=== PATIENT | male | born 1965 | race Caucasian/White ===

== ENCOUNTER 2017-05-26 04:45 | Inpatient (IN) | payer MEDICAID ==
[2017-05-26] VITALS (30 sets, daily range): BP systolic 100–160; BP diastolic 49–81
[~2017-05-26] VITALS: Ht 172.7 cm; Wt 96.2 kg
[~2017-05-26 04:45] MED LIST: AMLO1CAP2 PO; ASPI-1169 PO; CILO100T PO; CLON0.2T PO; DILT120T2 PO; GLIM1TAB PO; HYDR1TAB4 PO; IBUP-1953 PO; INSU100C7 SQ; INSULIN; LIRA0.6P SQ; METO-357 PO; OMEP40CA PO; PIOG15TA8 PO
--- NOTE | 2017-05-26 04:46 | NUR ---
To bed 8 a 51 yo male from home bbra initially for SOB with CPAP by ems. However while enroute, patient rapidly declined in his mentation. As soon as patient is transferred to [facility], pulse and respiration were not appreciated. CPR initiated and acls protocol initiated under Dr Crane. Please see code sheet.
--- NOTE | 2017-05-26 04:48 | NUR ---
started a saline lock on the right hand g18.
--- NOTE | 2017-05-26 04:50 | NUR ---
patient was successfully intubated by Dr Crane with 7.5 ett and at 25cm on lip. Co2 indicator with color change noted, xr at bedside to confirm placement.
--- NOTE | 2017-05-26 04:55 | NUR ---
Pulse was appreciated at this time. Patient on ROSC. ongoing cardiac and vs monitoring.
[2017-05-26] MEDS ORDERED: PROPOFOL 100 ML ONE (04:57)
[2017-05-26] MEDS ORDERED: PROPOFOL 100 ML IV PRN (05:00)
[2017-05-26 05:16] LABS: BASOPHILS # (AUTO) 0.1 /CMM (0.0-0.2); BASOPHILS % (AUTO) 0.6 % (0.0-2.0); EOSINOPHILS # (AUTO) 0.5 /CMM (0.0-0.7); EOSINOPHILS % (AUTO) 1.9 % (0.0-6.0); HEMATOCRIT 48 % (39-51); HEMOGLOBIN 15.7 g/dL (13.5-17.5); LYMPHOCYTES # (AUTO) 10.9 /CMM (0.8-4.8); LYMPHOCYTES % (AUTO) 46.9 % (20.0-44.0); MEAN CORPUSCULAR HEMOGLOBIN 31 PG (26.0-33.0); MEAN CORPUSCULAR HGB CONC 33 g/dl (31.0-36.0); MEAN CORPUSCULAR VOLUME 93 fL (80-96); MONOCYTES # (AUTO) 1.3 /CMM (0.1-1.30); MONOCYTES % (AUTO) 5.5 % (2.0-12.0); NEUTROPHILS # (AUTO) 10.5 /CMM (1.8-8.9); NEUTROPHILS % (AUTO) 45.1 % (43.0-81.0); PLATELET COUNT (AUTO) 261 /CMM (150-450); RDW COEFFICIENT OF VARIATION 14.2 (11.5-15.0); RED BLOOD CELL COUNT(AUTO) 5.15 MIL/uL (4.5-6.0); WHITE BLOOD COUNT (AUTO) 23.3 K/uL (4.3-11.0)
[2017-05-26 05:27] LABS: INR 0.97 (0.87-1.13)
[2017-05-26] MEDS ORDERED: FUROSEMIDE 40 MG/4 ML VIAL IV ONE (05:30)
[2017-05-26 05:32] LABS: ALANINE AMINOTRANSFERASE 34 U/L (12-78); ALBUMIN 2.4 g/dL (3.4-5.0); ALKALINE PHOSPHATASE 141 U/L (46-116); ASPARTATE AMINOTRANSFERASE 27 U/L (15-37); BILIRUBIN,DIRECT 0.1 mg/dL (0.0-0.2); BILIRUBIN,TOTAL 0.3 mg/dL (0.2-1.0); CALCIUM, SERUM 8.9 mg/dL (8.5-10.1); CARBON DIOXIDE 19 mmol/L (21-32); CHLORIDE 101 mmol/L (98-107); CREATININE 1.6 mg/dL (0.6-1.3); POTASSIUM 3.8 mmol/L (3.5-5.1); SODIUM SERUM 139 mmol/L (136-145); TOTAL PROTEIN, SERUM 8.3 g/dL (6.4-8.2); UREA NITROGEN, BLOOD 19 mg/dL (7-18)
[2017-05-26 05:33] LABS: ACETAMINOPHEN 0 ug/ml (10-30); GLUCOSE 488 mg/dL (74-106)
[2017-05-26 05:34] LABS: ALCOHOL, BLOOD < 3 mg/dL (0-0); TROPONIN I 0.085 ng/mL (0.00-0.056)
[2017-05-26 05:35] LABS: EOSINOPHILS % (MANUAL) 1 % (0-4); LYMPHOCYTES % (MANUAL) 51 % (16-48); MONOCYTES % (MANUAL) 3 % (0-11.0); NEUTROPHILS % (MANUAL) 45 (42-76)
[2017-05-26 05:48] LABS: ABG BASE EXCESS -11.9 mmol/L; ABG OXYGEN SATURATION 98.7 % (92.0-98.5); ABG PCO2 56.5 mmHg (35.0-45.0); ABG PH 7.121 (7.350-7.450); ABG PO2 237.5 mmHg (75.0-100.0); COHb 2.7 % (0.5-1.5); MetHb 0.6 % (0.0-1.5); O2Hb 95.4 % (94.0-97.0); PEEP,BG 5 cm H2O; SITE, ABG Left Radial; VENT MODE, BG AC VENT; VT, ABG 500 mL
[2017-05-26] MEDS ORDERED: INSULIN REGULAR, HUMAN 100 UNIT/ML 10 ML VIAL ONE (05:48)
[2017-05-26] MEDS ORDERED: FUROSEMIDE 40 MG/4 ML VIAL ONE (05:48)
--- NOTE | 2017-05-26 05:52 | NUR ---
Placed OGT on patient, noted with gurgling sounds upon instilling air. noted with brownish secretions. taped at 65cm on lip. xr at bedside to confirm placement.
--- NOTE | 2017-05-26 05:58 | NUR ---
nunez cath inserted aseptically, drained about 50cc of clear yellow urine.
[2017-05-26] MEDS ORDERED: ETOMIDATE 2 MG/ML VIAL IV ONE ×2 (06:00→09:02)
[2017-05-26] MEDS ORDERED: INSULIN REGULAR, HUMAN 100 UNIT/ML 10 ML VIAL SQ ONE (06:00)
[2017-05-26] MEDS ORDERED: CEFTRIAXONE 1GM BAG (ER ONLY) 1 GM/50 ML PIGGYBACK IV ONE (06:00)
[2017-05-26] MEDS ORDERED: ASPIRIN 300 MG/SUPP.RECT RC ONE ×2 (06:00→06:02)
[2017-05-26] MEDS ORDERED: IV NS 0.9% 1,000 ML BAG IV ONE (06:00)
[2017-05-26] MEDS ORDERED: SUCCINYLCHOLINE CHLORIDE 20 MG/ML VIAL IV ONE ×2 (06:00→09:02)
[2017-05-26] MEDS ORDERED: MIDAZOLAM HCL 100 MG in IV NS 0.9% 80 ML IV PRN (06:00)
--- NOTE | 2017-05-26 06:02 | NUR ---
FINGER STICK ON PATIENT 432 BLOOD SUGAR MD GALINDO MADE AWARE
[2017-05-26] MEDS ORDERED: MIDAZOLAM 50 MG/10 ML VIAL ONE (06:10)
[2017-05-26] MEDS ORDERED: CEFTRIAXONE 1GM BAG (ER ONLY) 50 ML IV ONE (06:30)
[2017-05-26] MEDS ORDERED: IV NS 0.9% 1,000 ML IV PRN (06:33)
--- NOTE | 2017-05-26 06:40 | NUR ---
Transferred patient to icu bed via als protocol with rt at bedside. no incident noted. ongoing versed, propofol, rocephin infusing. RN at bedside.
--- NOTE | 2017-05-26 06:45 | NUR ---
BOX BLANK MACHINE OPERATOR HELPER: RECEIVED ORALLY INTUBATED PATIENT FOR DX OF ACUTE RESPIRATORY FAILURE AND S/P CARDIO PULMONARY ARREST. PLACED ON FULL MECH VENT WT SETTINGS ORDERED. NO ACUTE DISTRESS, NO EVIDENCE OF DISCOMFORT. UNABLE TO FOLLOW SIMPLE COMMANDS. RECEIVED WT RH IV RUNNING VERSED AT 7MG/HR AND PROPOFOL AT 20MCG/KG/MIN. NO S/S OF INFILTRATION. WT EPISODES OF TRYING TO GET UP ON BED AND PULLING TUBES. BILAT. SOFT WRIST RESTRAINTS ALSO IN PLACE TO PREVENT SELF EXTUBATION. PALPABLE PULSES AND SKIN WNL. SR ON PULMONOLOGIST. F/C PATENT DRAINING YELLOW URINE TO GRAVITY. WARM BED BATH RENDERED. HOB AT 45 DEGREES. WILL CONTINUE TO MONITOR. SAFETY PRECAUTION NOTED.
[2017-05-26] MEDS ORDERED: ZOLPIDEM TARTRATE 5 MG TABLET PO PRN (07:00)
[2017-05-26] MEDS ORDERED: MAG HYDROX/AL HYDROX/SIMETH 30 ML UDC PO PRN (07:00)
[2017-05-26] MEDS ORDERED: Z GUARD REMEDY 2 OZ OINT TP PRN (07:00)
[2017-05-26] MEDS ORDERED: ONDANSETRON HCL/PF 4 MG/2 ML VIAL IVP PRN (07:00)
[2017-05-26] MEDS ORDERED: MAGNESIUM HYDROXIDE 30 ML UDC PO PRN (07:00)
[2017-05-26] MEDS ORDERED: INSULIN REGULAR, HUMAN 100 UNIT in IV NS 0.9% 99 ML IV PRN ×2 (07:00)
--- NOTE | 2017-05-26 07:09 | NUR ---
[employer]- INITIAL NOTE RECEIVED PT INTUBATED & SEDATED. PT ORALLY INTUBATED ETT 7.5, 25 CM @ THE LIP. RESPIRATIONS EVEN & UNLABORED, NO SOB OR DISTRESS PRESENT. PT SEDATED ON DIPIRVAN AT 50 MCG/MIN (RECEIVED PT RUNNING AT 50 MCG/MIN)- OK PER DR. ORELLANA TO GO UP TO 100 MCG/MIN PER MIRROR POLISHER NURSE. BEDSIDE MONITOR REVEALS SINUS RHYTHM. HAMPTON CATHETER DRAINING TO GRAVITY CLEAR, YELLOW URINE. OGT PRESENT AND CLAMPED. ADVANCED AND VERIFIED PLACEMENT VIA AUSCULTATION. TWO IVS PRESENT: RIGHT HAND 18G HL AND LEFT HAND 18G HL. BOTH IVS FLUSHED, PATENT, INTACT AND FREE OF REDNESS, SWELLING AND INFLAMMATION. WILL CONTINUE TO MONITOR.
--- NOTE | 2017-05-26 07:10 | NUR ---
POST ARREST PT D/W DR DAVIS WHO ORDERED COOLING PROTOCOL. I ASKED NURSING OFFICE FOR 1 TO1 NURSING WHICH WAS SUPPLIED. WILL CALL FOR FEMORAL ACCESS CATHETER AND COOLING BLANKETS
[2017-05-26] MEDS ORDERED: LEVALBUTEROL HCL NEB 1.25 MG/0.5 ML VIAL.NEB IH SCH (07:35)
--- NOTE | 2017-05-26 07:40 | NUR ---
DR DAVIS AND ESTEBAN HERE AT BEDSIDE-PER MDS-COOLING MEASURES PLAN IS NOW CANCELLED
[2017-05-26 07:47] LABS: MAGNESIUM 2.7 mg/dL (1.8-2.4); PHOSPHORUS 7.8 mg/dL (2.5-4.9)
[2017-05-26] MEDS ORDERED: INSULIN REGULAR, HUMAN 100 UNIT/ML 3 ML VIAL SQ PRN (08:00)
[2017-05-26] MEDS ORDERED: ALBUTEROL FS 2.5 MG/3 ML VIAL.NEB NEB PRN (08:00)
[2017-05-26] MEDS ORDERED: DEXTROSE 50%-WATER 50 ML DISP.SYRIN IV PRN ×2 (08:00)
[2017-05-26] MEDS ORDERED: IPRATROPIUM NEB FS 0.5 MG/2.5 ML AMPUL.NEB NEB PRN (08:00)
[2017-05-26] MEDS: POTASSIUM CL. PREMIX PERIPHER. 50 ML IV SCH ×4 (08:01→11:18)
[2017-05-26] MEDS: PROPOFOL 100 ML IV PRN ×6 (08:01→22:16)
[2017-05-26] MEDS: LEVOFLOXACIN 750 MG /D5W 150ML 750 MG in PREMIX 1 EA IV SCH (08:01)
[2017-05-26] MEDS: FUROSEMIDE 40 MG/4 ML VIAL IV SCH ×3 (08:02→16:04)
[2017-05-26 08:07] LABS: THYROID STIMULATING HORMONE 13.07 uIU/mL (0.358-3.74)
[2017-05-26] MEDS: IPRATROPIUM NEB FS 0.5 MG/2.5 ML AMPUL.NEB NEB SCH ×4 (08:35→20:04)
[2017-05-26] MEDS: ASPIRIN 81 MG TAB.CHEW PO SCH (08:44)
[2017-05-26] MEDS: PANTOPRAZOLE 40 MG VIAL IV SCH (08:47)
[2017-05-26] MEDS: HEPARIN SODIUM, PORCINE 5000 UNITS/1 ML VIAL SQ SCH ×2 (08:49→20:34)
[2017-05-26] MEDS: INSULIN REGULAR, HUMAN 100 UNIT/ML 3 ML VIAL SQ PRN ×3 (08:50→17:08)
[2017-05-26] MEDS: BLOOD SUGAR DIAGNOSTIC 1 EACH STRIP IN SCH ×5 (08:50→20:32)
[2017-05-26 08:52] LABS: ABG BASE EXCESS -3.7 mmol/L; ABG OXYGEN SATURATION 98.1 % (92.0-98.5); ABG PCO2 49.5 mmHg (35.0-45.0); ABG PH 7.293 (7.350-7.450); ABG PO2 160.7 mmHg (75.0-100.0); AaDO2 502.8 mmHg; COHb 1.6 % (0.5-1.5); MetHb 0.6 % (0.0-1.5); O2Hb 95.9 % (94.0-97.0); PEEP,BG 5 cm H2O; SITE, ABG Right Radial; VT, ABG 500 mL
[2017-05-26] MEDS ORDERED: GLIMEPIRIDE 1 MG TABLET PO SCH (09:00)
[2017-05-26] MEDS: METOPROLOL TARTRATE 25 MG TABLET PO SCH ×2 (09:00→20:31)
[2017-05-26] MEDS: BENAZEPRIL HCL 20 MG TABLET PO SCH (09:00)
[2017-05-26] MEDS ORDERED: METOPROLOL SUCCINATE 50 MG TAB.SR.24H PO SCH (09:00)
[2017-05-26] MEDS ORDERED: PIOGLITAZONE HCL 15 MG TABLET PO SCH (09:00)
[2017-05-26] MEDS: AMLODIPINE BESYLATE 10 MG TABLET PO SCH (09:00)
[2017-05-26] MEDS ORDERED: ENOXAPARIN SODIUM 40 MG/0.4 ML DISP.SYRIN SQ SCH (09:00)
[2017-05-26] MEDS ORDERED: Medication Not On Formulary EA (Amlodipine Besylate/Benazepril (Lotrel 10-40 Mg Capsule) PO SCH (09:00)
[2017-05-26] MEDS: CILOSTAZOL 100 MG TABLET PO SCH ×2 (09:38→17:07)
--- NOTE | 2017-05-26 11:00 | NUR ---
OIL SEAL ASSEMBLER- SEDATION VACATION COMPLETED. AT 50 MCG/MIN OF DIPRIVAN, PT WOKE UP AND WAS ABLE TO FOLLOW COMMANDS. MILD AGITATION NOTED (TACHYPNEA). DIPRIVAN INCREASED TO 55 MCG/MIN. WILL CONTINUE TO MONITOR.
[2017-05-26 13:02] LABS: CALCIUM, SERUM 7.8 mg/dL (8.5-10.1); CREATININE 1.3 mg/dL (0.6-1.3); POTASSIUM 5.3 mmol/L (3.5-5.1)
[2017-05-26 13:06] LABS: APPEARANCE,URINE CLEAR (CLEAR); BILIRUBIN,URINE NEGATIVE (NEGATIVE); BLOOD, URINE 1+ Ery/uL (NEGATIVE); COLOR,URINE YELLOW (YELLOW); KETONES,URINE NEGATIVE (NEGATIVE); LEUKOCYTE ESTERASE ,URINE NEGATIVE (NEGATIVE); NITRITE, URINE NEGATIVE (NEGATIVE); PROTEIN,URINE 1+ mg/dl (NEGATIVE); UGLUCOSE NEGATIVE (NEGATIVE); UROBILINOGEN,URINE 0.2 EU/dL (0.2)
[2017-05-26 13:15] LABS: MAGNESIUM 2.1 mg/dL (1.8-2.4); PHOSPHORUS 4.2 mg/dL (2.5-4.9)
[2017-05-26 13:18] LABS: BACTERIA,URINE Rare /HPF (None Seen); RBC,URINE 0-2 /HPF (0-2); SQUAMOUS EPITHELIAL CELL,UR Few /HPF (None Seen)
[2017-05-26 13:23] LABS: EOSINOPHIL,URINE None Seen
[2017-05-26 13:39] LABS: URINE TOTAL PROTEIN 66.6 mg/dL (0-11.9)
--- NOTE | 2017-05-26 13:50 | NUR ---
SHIP MANAGER- DR. WELLS AT BEDSIDE. MD INFORMED OF TROPONIN LEVEL= 0.446. NO NEW ORDERS AT THIS TIME. WILL CONTINUE TO MONITOR.
[2017-05-26 18:30] LABS: POTASSIUM 4.1 mmol/L (3.5-5.1)
[2017-05-26 18:40] LABS: TROPONIN I 0.382 ng/mL (0.00-0.056)
--- NOTE | 2017-05-26 20:16 | NUR ---
received pt from day shift, s/p CPA, sedated on Diprivan at 60mcg, NSR, intubated, on the vent, lungs diminished/congested, no edema, OG clamped, f/c good output, restraints on, v/s stable, no pain, pt turned and repositioned, family at the bedside.
[2017-05-27] VITALS (38 sets, daily range): BP systolic 105–170; BP diastolic 48–87
[2017-05-27] MEDS: IPRATROPIUM NEB FS 0.5 MG/2.5 ML AMPUL.NEB NEB SCH ×7 (00:11→22:54)
--- NOTE | 2017-05-27 00:36 | NUR ---
pt is resting in the bed, v/s stable, no pain, pt turned and repositioned q2hrs.
[2017-05-27] MEDS: PROPOFOL 100 ML IV PRN ×3 (00:59→06:30)
[2017-05-27] MEDS: BLOOD SUGAR DIAGNOSTIC 1 EACH STRIP IN SCH ×6 (01:11→21:07)
--- NOTE | 2017-05-27 03:48 | NUR ---
RT NOTE PATIENT RECEIVED ON MECHANICAL VENTILATION, SETTINGS OF AC 20, 550, 60%, +5. ET TUBE SIZE 7.5 @ 25. ET TUBE SECURED AND PATENT AT ALL TIMES. VENT PLUGGED INTO RED OUTLET. AMBU BAG @ HOB. ALARMS ON AND AUDIBLE. SX DONE, SMALL THICK WHITE/YELLOW SECRETIONS NOTED. NO SOB NOTED. Addendum: 05/27/17 at 0349 by GINO SOLIZ RT Amended: Links added.
--- NOTE | 2017-05-27 04:37 | NUR ---
pt is resting in the bed, no acute distress overnight, SR, v/s stable, no pain, pt cleaned, changed and repositioned q2hrs.
[2017-05-27 04:46] LABS: BASOPHILS % (AUTO) 0.4 % (0.0-2.0); EOSINOPHILS # (AUTO) 0.1 /CMM (0.0-0.7); EOSINOPHILS % (AUTO) 1.8 % (0.0-6.0); HEMATOCRIT 39 % (39-51); HEMOGLOBIN 13.3 g/dL (13.5-17.5); LYMPHOCYTES # (AUTO) 1.6 /CMM (0.8-4.8); LYMPHOCYTES % (AUTO) 20.3 % (20.0-44.0); MEAN CORPUSCULAR HEMOGLOBIN 31 PG (26.0-33.0); MEAN CORPUSCULAR HGB CONC 34 g/dl (31.0-36.0); MEAN CORPUSCULAR VOLUME 91 fL (80-96); MONOCYTES # (AUTO) 0.6 /CMM (0.1-1.30); MONOCYTES % (AUTO) 7.4 % (2.0-12.0); NEUTROPHILS # (AUTO) 5.4 /CMM (1.8-8.9); NEUTROPHILS % (AUTO) 70.1 % (43.0-81.0); PLATELET COUNT (AUTO) 138 /CMM (150-450); RDW COEFFICIENT OF VARIATION 14.4 (11.5-15.0); RED BLOOD CELL COUNT(AUTO) 4.29 MIL/uL (4.5-6.0); WHITE BLOOD COUNT (AUTO) 7.7 K/uL (4.3-11.0)
[2017-05-27] MEDS: INSULIN REGULAR, HUMAN 100 UNIT/ML 3 ML VIAL SQ PRN ×5 (04:48→21:08)
[2017-05-27 05:07] LABS: TROPONIN I 0.286 ng/mL (0.00-0.056)
[2017-05-27 05:10] LABS: ALBUMIN 1.9 g/dL (3.4-5.0); BILIRUBIN,TOTAL 0.3 mg/dL (0.2-1.0); CREATININE 1.1 mg/dL (0.6-1.3); PHOSPHORUS 4.7 mg/dL (2.5-4.9); POTASSIUM 3.9 mmol/L (3.5-5.1); TOTAL PROTEIN, SERUM 6.6 g/dL (6.4-8.2)
[2017-05-27] MEDS: LEVOFLOXACIN 750 MG /D5W 150ML 750 MG in PREMIX 1 EA IV SCH (06:06)
--- NOTE | 2017-05-27 07:02 | NUR ---
GOODS LAYER- INITIAL NOTE RECEIVED PT INTUBATED & SEDATED. PT ORALLY INTUBATED ETT 7.5, 25 CM @ THE LIP. RESPIRATIONS EVEN & UNLABORED, NO SOB OR DISTRESS PRESENT. PT SEDATED ON DIPIRVAN AT 60 MCG/MIN. CAKE TESTER REVEALS SINUS RHYTHM. HAMPTON CATHETER DRAINING TO GRAVITY CLEAR, YELLOW URINE. OGT PRESENT AND CLAMPED. PLACEMENT VERIFIED VIA AUSCULTATION. THREE IVS PRESENT: 1) RIGHT HAND 18G HL, 2) LEFT HAND 18G HL AND 3) LEFT UPPER ARM MIDLINE. ALL IVS FLUSHED, PATENT, INTACT AND FREE OF REDNESS, SWELLING AND INFLAMMATION. PLAN FOR WEANING TRIAL TODAY. WILL CONTINUE TO MONITOR.
[2017-05-27] MEDS ORDERED: DC PROPOFOL WHEN EXTUBATED XX PRN (08:00)
--- NOTE | 2017-05-27 08:00 | NUR ---
SHAREPOINT CONSULTANT- Diprivan titrated per policy. Pt placed on SIMV mode by RT. 0815- Pt awake, alert & able to follow commands. No distress noted. 0845- Dr. Watts at bedside. aware of ABG results. Obtained orders to extubate pt. 0900- Pt extubated by RT and placed on 2L NC, saturating 93%. No respiratory distress noted. Will continue to monitor.
[2017-05-27] MEDS: CILOSTAZOL 100 MG TABLET PO SCH ×2 (08:24→16:22)
[2017-05-27] MEDS: METOPROLOL TARTRATE 25 MG TABLET PO SCH ×2 (08:24→20:11)
[2017-05-27] MEDS: PANTOPRAZOLE 40 MG VIAL IV SCH (08:24)
[2017-05-27] MEDS: AMLODIPINE BESYLATE 10 MG TABLET PO SCH (08:24)
[2017-05-27] MEDS: ASPIRIN 81 MG TAB.CHEW PO SCH (08:30)
[2017-05-27] MEDS: HEPARIN SODIUM, PORCINE 5000 UNITS/1 ML VIAL SQ SCH (08:30)
[2017-05-27 08:45] LABS: ABG BASE EXCESS 1.3 mmol/L; ABG OXYGEN SATURATION 98.3 % (92.0-98.5); ABG PCO2 40.4 mmHg (35.0-45.0); ABG PH 7.423 (7.350-7.450); ABG PO2 134.6 mmHg (75.0-100.0); AaDO2 176.5 mmHg; COHb 0.8 % (0.5-1.5); MetHb 0.5 % (0.0-1.5); PEEP,BG 5 cm H2O; SITE, ABG Left Radial
--- NOTE | 2017-05-27 09:10 | NUR ---
PT. 51 Y OLD MALE AWAKE AND RESPONSIVE. EXTUBATED PER DR. JACOBS POST ABG AND PLACED ON 2L/MIN N/C AND NO STRIDOR NOTED. PT. RADHA WELL AND CONTINUE FOR MONITORING AMBU BAG REMAIN AT THE BEDSIDE. Addendum: 05/27/17 at 1752 by JACEY VELÁZQUEZ RT Amended: Links added.
[2017-05-27] MEDS: FUROSEMIDE 40 MG/4 ML VIAL IV SCH ×2 (09:12→12:17)
[2017-05-27] MEDS: VALSARTAN 80 MG TABLET PO SCH (10:10)
[2017-05-27] MEDS: BENAZEPRIL HCL 20 MG TABLET PO SCH (10:10)
[2017-05-27] MEDS ORDERED: DEXTROSE 50%-WATER 50 ML DISP.SYRIN IV PRN (10:30)
[2017-05-27] MEDS ORDERED: EPINEPHRINE (1:10,000) SYRINGE 1 MG/10 ML DISP.SYRIN IVP ONE (11:32)
[2017-05-27] MEDS ORDERED: FEE EMEERGENCY 1 MIN EA MC ONE (11:32)
[2017-05-27] MEDS: ACETAMINOPHEN 325 MG TABLET PO PRN (16:22)
[2017-05-27] MEDS: GUAIFENESIN LA 600 MG TABLET.SA PO PRN (17:28)
[2017-05-27] MEDS ORDERED: GUAIFENESIN LA 600 MG TABLET.SA PO SCH (17:30)
--- NOTE | 2017-05-27 19:30 | NUR ---
LABOR RELATIONS OFFICER INITIAL NOTES RECEIVED PATIENT AWAKE, A/OX4, ABLE TO MAKE NEEDS KNOWN. S/P POST EXTUBATION. EDUCATED ON INCENTIVE SPIROMETER, PATIENT ABLE TO DEMONSTRATE BACK TEACHING. DENIES PAIN OR DISCOMFORT, STATES HE FEELS FINE. DENIES SOB. DENIES CHEST PAIN. RESPIRATIONS EVEN AND UNLABORED, ON ROOM AIR. ON TELE MONITOR SINUS TACH 112. SKIN WARM AND DRY TO TOUCH . F/C PATENT AND INTACT, DRAINING BY GRAVITY. HOB ELEVATED. SIDE RAILS UP AND LOCKED, BED KEPT AT LOWEST POSITION. CALL LIGHT KEPT WITHIN EASY REACH. WILL CONTINUE TO MONITOR.
--- NOTE | 2017-05-27 20:44 | NUR ---
PATIENT C/O FEELING NAUSEA, NO EMESIS NOTED, PRN ZOFRAN WAS GIVEN, WITH GOOD AFFECT. WILL CONTINUE TO MONITOR.
--- NOTE | 2017-05-27 21:02 | NUR ---
PATIENT REQUESTED FOR SLEEPING MEDICATION, MD MADE AWARE WITH NEW ORDERS FOR AMBIEN 5MG PO HS PRN. NOTED.
[2017-05-27] MEDS ORDERED: ZOLPIDEM TARTRATE 5 MG TABLET PO PRN (21:30)
--- NOTE | 2017-05-27 23:51 | NUR ---
PATIENT NOTED WITH ELEVATED BP 170/87. ASYMPTOMATIC. WILL CONTINUE TO MONITOR.
[2017-05-28] VITALS (17 sets, daily range): BP systolic 133–165; BP diastolic 63–82
[2017-05-28] MEDS: HYDROCODONE/APAP 5/325MG 1 EACH TABLET PO PRN (00:49)
[2017-05-28] MEDS: IPRATROPIUM NEB FS 0.5 MG/2.5 ML AMPUL.NEB NEB SCH ×6 (03:22→23:10)
[2017-05-28 04:31] LABS: BASOPHILS # (AUTO) 0.1 /CMM (0.0-0.2); BASOPHILS % (AUTO) 0.8 % (0.0-2.0); EOSINOPHILS # (AUTO) 0.3 /CMM (0.0-0.7); EOSINOPHILS % (AUTO) 2.4 % (0.0-6.0); HEMATOCRIT 42 % (39-51); HEMOGLOBIN 14.3 g/dL (13.5-17.5); LYMPHOCYTES # (AUTO) 2.3 /CMM (0.8-4.8); LYMPHOCYTES % (AUTO) 20.1 % (20.0-44.0); MEAN CORPUSCULAR HEMOGLOBIN 31 PG (26.0-33.0); MEAN CORPUSCULAR HGB CONC 34 g/dl (31.0-36.0); MEAN CORPUSCULAR VOLUME 90 fL (80-96); MONOCYTES # (AUTO) 0.9 /CMM (0.1-1.30); MONOCYTES % (AUTO) 7.4 % (2.0-12.0); NEUTROPHILS # (AUTO) 8.1 /CMM (1.8-8.9); NEUTROPHILS % (AUTO) 69.3 % (43.0-81.0); PLATELET COUNT (AUTO) 175 /CMM (150-450); RED BLOOD CELL COUNT(AUTO) 4.67 MIL/uL (4.5-6.0); WHITE BLOOD COUNT (AUTO) 11.6 K/uL (4.3-11.0)
[2017-05-28] MEDS: GUAIFENESIN LA 600 MG TABLET.SA PO PRN (04:50)
[2017-05-28 04:59] LABS: ALBUMIN 2.1 g/dL (3.4-5.0); BILIRUBIN,TOTAL 0.6 mg/dL (0.2-1.0); CALCIUM, SERUM 8.2 mg/dL (8.5-10.1); CREATININE 1.1 mg/dL (0.6-1.3); MAGNESIUM 1.8 mg/dL (1.8-2.4); PHOSPHORUS 3.5 mg/dL (2.5-4.9); TOTAL PROTEIN, SERUM 6.9 g/dL (6.4-8.2)
--- NOTE | 2017-05-28 07:30 | NUR ---
RN NOTES RECEIVED PATIENT RESTING IN BED, AWAKE, A/OX4, ABLE TO MAKE NEEDS KNOWN. S/P POST EXTUBATION YESTERDAY. ON O2@2LPM VIA NC, SATING WELL. NO SOB NOTED. HOB ELEVATED. VERBALIZED FEELING SORE ON CHEST AREA FROM CPR. SR ON WELDER REPAIR HR 90'S, SKIN WARM AND DRY TO TOUCH . F/C PATENT AND INTACT, DRAINING BY GRAVITY. SIDE RAILS UP AND LOCKED. CALL LIGHT KEPT WITHIN EASY REACH. WILL CONTINUE TO MONITOR.
--- NOTE | 2017-05-28 07:45 | NUR ---
CLERK OF WORKS CLOSING NOTES NO SIGNIFICANT CHANGES OVERNIGHT. ALL NEEDS ANTICIPATED AND MET. DENIES SOB, DENIES PAIN OR DISCOMFORT AT THIS TIME. ALL DUE MEDS GIVEN. PATIENT WITH EPISODE OF PAIN WHEN COUGHING. NO RESPIRATORY DISTRESS NOTED, ON 2LPMO2 VIA NC FOR COMFORT. F/C PATENT AND INTACT, DRAINING BY GRAVITY. PATIENT KEPT CLEAN AND DRY. TURNED AND REPOSITIONED TOLERATED. HOB ELEVATED. SIDE RAILS UP AND LOCKED. BED KEPT AT LOWEST POSITION. CALL LIGHT KEPT WITHIN EASY REACH. CONTINUITY OF CARE ENDORSED TO AM NURSE.
[2017-05-28 08:11] LABS: *SPE A/G RATIO 0.7 (0.7-1.7); *SPE ALBUMIN 2.5 g/dL (2.9-4.4); *SPE ALPHA-1-GLOBULIN 0.3 g/dL (0.0-0.4); *SPE ALPHA-2-GLOBULIN 1.3 g/dL (0.4-1.0); *SPE BETA GLOBULIN 1.2 g/dL (0.7-1.3); *SPE GLOBULIN, TOTAL 3.8 g/dL (2.2-3.9); *SPE M-SPIKE Not Observed g/dL (Not Observed); *SPEGAMMA GLOBULIN 1.1 g/dL (0.4-1.8)
[2017-05-28] MEDS: BLOOD SUGAR DIAGNOSTIC 1 EACH STRIP IN SCH ×4 (08:46→22:33)
[2017-05-28] MEDS: BENAZEPRIL HCL 20 MG TABLET PO SCH (08:47)
[2017-05-28] MEDS: PANTOPRAZOLE 40 MG VIAL IV SCH (08:47)
[2017-05-28] MEDS: CILOSTAZOL 100 MG TABLET PO SCH ×2 (08:47→17:39)
[2017-05-28] MEDS: ASPIRIN 81 MG TAB.CHEW PO SCH (08:48)
[2017-05-28] MEDS: VALSARTAN 80 MG TABLET PO SCH (08:48)
[2017-05-28] MEDS: LEVOFLOXACIN (750 MG) 750 MG TABLET PO SCH (08:48)
[2017-05-28] MEDS: AMLODIPINE BESYLATE 10 MG TABLET PO SCH (08:48)
[2017-05-28] MEDS: METOPROLOL TARTRATE 25 MG TABLET PO SCH ×4 (08:49→23:51)
[2017-05-28] MEDS: ENOXAPARIN SODIUM 40 MG/0.4 ML DISP.SYRIN SQ SCH (08:49)
[2017-05-28] MEDS: INSULIN REGULAR, HUMAN 100 UNIT/ML 3 ML VIAL SQ PRN ×4 (08:55→22:47)
[2017-05-28] MEDS: FUROSEMIDE 40 MG/4 ML VIAL IV SCH ×3 (09:46→17:40)
--- NOTE | 2017-05-28 11:08 | NUR ---
RN NOTES PT TRANSFERRED TO ROOM 108, REPORT GIVEN TO DAVINA MAS. AT BEDSIDE. NO ACUTE CHANGE IN CONDITION. VS STABLE.
--- NOTE | 2017-05-28 11:15 | NUR ---
Rn note; patient transferred from ICU without any distress . breathing even and unlabored , v/s stable at this time, SR in tele monitor. denied any pain, will continue to monitor .
[2017-05-28] MEDS: ACETAMINOPHEN 325 MG TABLET PO PRN (15:07)
--- NOTE | 2017-05-28 19:31 | NUR ---
RN EOS NOTE; PATIENT IS ABLE TO SIT IN THE EDGE OF THE BED AND DANGLE HIS FEET , NO DISTRESS NOTED. PRN TYLENOL PO GIVEN FOR MILD PAIN AROUND CHEST , TOLERATED WELL . REPORT GIVEN TO RN ILYA FOR CONTINUITY OF CARE.
--- NOTE | 2017-05-28 20:00 | NUR ---
MANAGER TRAINEE NOTES: RECEIVED PT IN AND IS ON ROOM AIR. PT AWAKE AND IS A/O4. FAMILY MEMBERS AT BEDSIDE. PT HAS HAMPTON CATH AND IS ATTACHED TO DRAINAGE BAG WITH YELLOW URINE DRAINING. PT HAS DAISY MIDLINE AND IS PATENT AND INTACT. PT ALSO HAS L HAND #18G AND IS PATENT AND INTACT. BOTH ARE S/L. CALL LIGHT WITHIN PT'S REACH. BED KEPT IN LOW, LOCKED POSITION, AND SIDE RAILS X 2UP. WILL CONTINUE TO MONITOR PT.
[2017-05-28] MEDS: INSULIN GLARGINE, 100 UNIT/ML CARTRIDGE SQ SCH (22:39)
--- NOTE | 2017-05-28 22:49 | NUR ---
MS RN NOTES: BLOOD SUGAR 288. HAD TO BORROW INSULIN SINCE NONE IN PATIENT'S CASETTE. CHARGE NURSE AWARE. 6 UNITS OF INSULIN WAS ADMINISTERED.
--- NOTE | 2017-05-28 23:00 | NUR ---
RN NOTES: GOT ORDER FROM ELAINE HARRYIEN 10MG PO PRN HS.
[2017-05-29] VITALS: BP 156/71
[2017-05-29] MEDS ORDERED: ZOLPIDEM TARTRATE 10 MG TABLET PO PRN
--- NOTE | 2017-05-29 | NUR ---
RN NOTES: PT REQUESTED FOR SLEEP MEDICATION. PT WAS ADMINISTERED AMBIEN 10MG PO.
[2017-05-29] MEDS: IPRATROPIUM NEB FS 0.5 MG/2.5 ML AMPUL.NEB NEB SCH ×6 (03:13→23:30)
[2017-05-29 04:00] VITALS: BP 150/72
[2017-05-29] MEDS: METOPROLOL TARTRATE 25 MG TABLET PO SCH ×3 (05:51→17:45)
[2017-05-29] MEDS: LEVOFLOXACIN (750 MG) 750 MG TABLET PO SCH (06:04)
[2017-05-29 06:35] LABS: CALCIUM, SERUM 8.5 mg/dL (8.5-10.1); CREATININE 1.1 mg/dL (0.6-1.3); POTASSIUM 3.8 mmol/L (3.5-5.1)
[2017-05-29 06:44] LABS: BASOPHILS % (AUTO) 0.2 % (0.0-2.0); EOSINOPHILS # (AUTO) 0.3 /CMM (0.0-0.7); EOSINOPHILS % (AUTO) 2.3 % (0.0-6.0); HEMATOCRIT 46 % (39-51); HEMOGLOBIN 15.9 g/dL (13.5-17.5); LYMPHOCYTES # (AUTO) 2.6 /CMM (0.8-4.8); LYMPHOCYTES % (AUTO) 19.2 % (20.0-44.0); MEAN CORPUSCULAR HEMOGLOBIN 31 PG (26.0-33.0); MEAN CORPUSCULAR HGB CONC 35 g/dl (31.0-36.0); MEAN CORPUSCULAR VOLUME 89 fL (80-96); MONOCYTES # (AUTO) 1.1 /CMM (0.1-1.30); MONOCYTES % (AUTO) 8.3 % (2.0-12.0); NEUTROPHILS # (AUTO) 9.4 /CMM (1.8-8.9); PLATELET COUNT (AUTO) 202 /CMM (150-450); RDW COEFFICIENT OF VARIATION 14.6 (11.5-15.0); RED BLOOD CELL COUNT(AUTO) 5.14 MIL/uL (4.5-6.0); WHITE BLOOD COUNT (AUTO) 13.4 K/uL (4.3-11.0)
--- NOTE | 2017-05-29 06:48 | NUR ---
GAS MAIN FITTER HELPER NOTES: ALL NEEDS WERE ATTENDED AND ANTICIPATED FOR. PT ON ROOM AIR AND TOLERATING WELL. PT ON TELE BOX AND READING SHOWS ST 104. PT HAS HAMPTON CATH AND IS ATTACHED TO DRAINAGE BAG. OUTPUT WAS 750ML. PT HAS DAISY MIDLINE AND IS PATENT AND INTACT. PT ALSO HAS L HAND 18G AND IS PATENT AND INTACT. CURRENTLY S/L. CALL LIGHT WITHIN PT'S REACH. BED KEPT IN LOW, LOCKED POSITION, AND SIDE RAILS X 2UP. WILL ENDORSE TO AM NURSE FOR MORENITA.
--- NOTE | 2017-05-29 07:26 | NUR ---
ENGINE SERVICE REPAIRER NOTES RECEIVED PT ON BED SLEEPING, ALERT ORIENTED X3. ON ROOM AIR SATURATING WELL. IV ACCESS ON DAISY MIDLINE SL. HEAD OF BED ELEVATED. SIDE RAILS UP. CALL LIGHT WITHIN REACH. WILL CONTINUE TO MONITOR PT CLOSELY.
[2017-05-29] MEDS: BLOOD SUGAR DIAGNOSTIC 1 EACH STRIP IN SCH ×4 (07:47→22:14)
[2017-05-29] MEDS: INSULIN REGULAR, HUMAN 100 UNIT/ML 3 ML VIAL SQ PRN ×4 (07:50→22:32)
[2017-05-29 08:00] VITALS: BP 164/76
[2017-05-29] MEDS: ASPIRIN 81 MG TAB.CHEW PO SCH (08:33)
[2017-05-29] MEDS: PANTOPRAZOLE 40 MG VIAL IV SCH (08:34)
[2017-05-29] MEDS: AMLODIPINE BESYLATE 10 MG TABLET PO SCH (08:34)
[2017-05-29] MEDS: BENAZEPRIL HCL 20 MG TABLET PO SCH (08:35)
[2017-05-29] MEDS: VALSARTAN 80 MG TABLET PO SCH (08:36)
[2017-05-29] MEDS: CILOSTAZOL 100 MG TABLET PO SCH ×2 (08:36→16:15)
[2017-05-29] MEDS: ENOXAPARIN SODIUM 40 MG/0.4 ML DISP.SYRIN SQ SCH (08:37)
[2017-05-29] MEDS: FUROSEMIDE 100 MG/10 ML VIAL IV SCH ×3 (10:41→17:46)
[2017-05-29 12:00] VITALS: BP 156/78
--- NOTE | 2017-05-29 14:42 | NUR ---
HERBOLOGIST NOTES PATIENT REFUSED OXYGEN. EXPLAINED THE RISK AND BENEFITS.
--- NOTE | 2017-05-29 15:18 | NUR ---
FOUND @ ROOM AIR SPO2 94% Addendum: 05/29/17 at 1518 by FLORENCIO NETTLES RT Amended: Links added.
[2017-05-29 16:00] VITALS: BP 128/78
[2017-05-29] MEDS: HYDROCODONE/APAP 5/325MG 1 EACH TABLET PO PRN ×2 (16:15→22:15)
--- NOTE | 2017-05-29 18:23 | NUR ---
CONTROL AND RECOVERY COMBAT RESCUE NOTES NO ACUTE CHANGES NOTED DURING THE SHIFT. DUE MEDS GIVEN. PROVIDED COMFORT AND SAFETY. WILL ENDORSE TO THE PM NURSE FOR MORENITA.
--- NOTE | 2017-05-29 19:25 | NUR ---
PIPE SMOKING MACHINE OFFBEARER OPENING NOTES RECEIVED REPORT FROM EMIGDIO MAS. PATIENT A/A/O X3, ABLE TO VERBALIZE NEEDS. BREATHING EVEN & UNLABORED, TOLERATING ROOM AIR. DENIES SOB OR DIFFICULTY BREATHING. ON TELE W/ SINUS TACH, HR 110-111. RIGHT AC IV #18, LEFT HAND IV #18 & LEFT UPPER ARM MIDLINE #18 INTACT & PATENT W/ DRESSING CDI, SALINE LOCKED. HAMPTON CATH DRAINING YELLOW URINE. DENIES ANY PAIN OR DISCOMFORT @ THIS TIME. CURRENTLY OOB IN CHAIR W/ FAMILY @ BEDSIDE. INSTRUCTED TO USE CALL LIGHT FOR ASSISTANCE. WILL CONTINUE TO MONITOR.
[2017-05-29 20:00] VITALS: BP 139/72
[2017-05-29] MEDS: INSULIN GLARGINE, 100 UNIT/ML CARTRIDGE SQ SCH (22:30)
[2017-05-30] VITALS: BP 115/61
[2017-05-30] MEDS: METOPROLOL TARTRATE 25 MG TABLET PO SCH ×4 (00:39→17:20)
[2017-05-30] MEDS: HYDROCODONE/APAP 5/325MG 1 EACH TABLET PO PRN (02:59)
[2017-05-30] MEDS: IPRATROPIUM NEB FS 0.5 MG/2.5 ML AMPUL.NEB NEB SCH ×4 (03:30→16:09)
[2017-05-30 04:00] VITALS: BP 141/71
[2017-05-30 06:31] LABS: BASOPHILS % (AUTO) 0.3 % (0.0-2.0); EOSINOPHILS # (AUTO) 0.4 /CMM (0.0-0.7); EOSINOPHILS % (AUTO) 3.4 % (0.0-6.0); HEMATOCRIT 44 % (39-51); HEMOGLOBIN 15.3 g/dL (13.5-17.5); LYMPHOCYTES # (AUTO) 2.4 /CMM (0.8-4.8); LYMPHOCYTES % (AUTO) 20.5 % (20.0-44.0); MEAN CORPUSCULAR HEMOGLOBIN 31 PG (26.0-33.0); MEAN CORPUSCULAR HGB CONC 35 g/dl (31.0-36.0); MEAN CORPUSCULAR VOLUME 89 fL (80-96); MONOCYTES # (AUTO) 1.2 /CMM (0.1-1.30); MONOCYTES % (AUTO) 9.7 % (2.0-12.0); NEUTROPHILS # (AUTO) 7.8 /CMM (1.8-8.9); NEUTROPHILS % (AUTO) 66.1 % (43.0-81.0); PLATELET COUNT (AUTO) 199 /CMM (150-450); RDW COEFFICIENT OF VARIATION 14.6 (11.5-15.0); WHITE BLOOD COUNT (AUTO) 11.9 K/uL (4.3-11.0)
[2017-05-30 06:37] LABS: ALBUMIN 2.3 g/dL (3.4-5.0); BILIRUBIN,TOTAL 0.6 mg/dL (0.2-1.0); CALCIUM, SERUM 8.8 mg/dL (8.5-10.1); CREATININE 1.4 mg/dL (0.6-1.3); MAGNESIUM 1.9 mg/dL (1.8-2.4); PHOSPHORUS 4.6 mg/dL (2.5-4.9); POTASSIUM 3.5 mmol/L (3.5-5.1); TOTAL PROTEIN, SERUM 7.5 g/dL (6.4-8.2)
[2017-05-30] MEDS: LEVOFLOXACIN (750 MG) 750 MG TABLET PO SCH (07:00)
--- NOTE | 2017-05-30 07:19 | NUR ---
CONSULTING SERVICES PROJECT MANAGER NOTES RECEIVED PT ON BED SLEEPING. NPO. ON TELE MONITOR SINUS TACHY. ON NASAL CANNULA SATURATING WELL. IV ACCESS ON DAISY MIDLINE AND RAC #18 HL. HEAD OF BED ELEVATED. SIDE RAILS UP. CALL LIGHT WITHIN REACH. WILL CONTINUE TO MONITOR PT CLOSELY.
[2017-05-30] MEDS: BLOOD SUGAR DIAGNOSTIC 1 EACH STRIP IN SCH ×3 (07:34→17:22)
[2017-05-30 08:00] VITALS: BP 142/58
[2017-05-30] MEDS: BENAZEPRIL HCL 20 MG TABLET PO SCH (09:00)
[2017-05-30] MEDS: CILOSTAZOL 100 MG TABLET PO SCH ×2 (09:00→17:19)
[2017-05-30] MEDS: ASPIRIN 81 MG TAB.CHEW PO SCH (09:00)
[2017-05-30] MEDS: ENOXAPARIN SODIUM 40 MG/0.4 ML DISP.SYRIN SQ SCH (09:00)
[2017-05-30] MEDS ORDERED: VALSARTAN 80 MG TABLET PO SCH (09:00)
[2017-05-30] MEDS: AMLODIPINE BESYLATE 10 MG TABLET PO SCH (09:00)
[2017-05-30] MEDS: PANTOPRAZOLE 40 MG VIAL IV SCH (09:59)
--- NOTE | 2017-05-30 11:03 | NUR ---
CASHIER ASSISTANT NOTES BLOOD SUGAR 216MG/DL. NO INSULIN PATIENT IS NPO.
[2017-05-30] MEDS ORDERED: IOHEXOL-350 100 ML VIAL IV ONE (11:57)
[2017-05-30] MEDS ORDERED: CT SWABBABLE VALVE TRANS SET 1 EA INFUS.SET MC ONE (11:57)
[2017-05-30] MEDS ORDERED: IV NS 0.9% 250 ML IV ONE (11:57)
[2017-05-30] MEDS ORDERED: METOPROLOL TARTRATE INJ 5 MG/5 ML AMPUL ONE ×3 (13:47→14:21)
--- NOTE | 2017-05-30 15:50 | NUR ---
MS RN NOTES HAMPTON CATHETER REMOVED. PATIENT ABLE TO VOID AND MOVE ON HIS OWN.
[2017-05-30 16:00] VITALS: BP 137/67
[2017-05-30] MEDS ORDERED: METO25TA20 PO (17:07)
[2017-05-30] MEDS ORDERED: AMLO10TA2 PO (17:07)
[2017-05-30] MEDS ORDERED: VALS80TA2 PO (17:07)
[2017-05-30 17:20] VITALS: BP 137/67
[2017-05-30] MEDS: INSULIN REGULAR, HUMAN 100 UNIT/ML 3 ML VIAL SQ PRN (17:21)
--- NOTE | 2017-05-30 18:42 | NUR ---
MS RN NOTES PT DISCHARGED STABLE. EXITE CARE AND PRESCRIPTION DONE. ACCOMPANIED BY AND RN OUTSIDE THE HOSPITAL. PT STABLE BEFORE DISCHARGE.
== END 2017-05-30 18:40 | disposition home or self-care (01) | DRG 720 ==
LOC: ER 04:46 → ICU 06:08 → TELE1 05-28 10:52 → MEDSG1 05-30 12:18
PROVIDERS: ADMIT Internal Medicine; ATTEND Internal Medicine
PROC: 5A12012 Performance of Cardiac Output, Single, Manual (ICD-10-PCS; principal; 2017-05-26)
PROC: 5A1945Z Respiratory Ventilation, 24-96 Consecutive Hours (ICD-10-PCS; 2017-05-26)
PROC: 0BH17EZ Insertion of Endotracheal Airway into Trachea, Via Natural or Artificial Opening (ICD-10-PCS; 2017-05-26)
PROC: B547ZZA Ultrasonography of Left Subclavian Vein, Guidance (ICD-10-PCS; 2017-05-26)
PROC: 05H633Z Insertion of Infusion Device into Left Subclavian Vein, Percutaneous Approach (ICD-10-PCS; 2017-05-26)
DX: A41.9 Sepsis, unspecified organism (principal); I46.9 Cardiac arrest, cause unspecified; I21.A1 Myocardial infarction type 2; I50.33 Acute on chronic diastolic (congestive) heart failure; J96.01 Acute respiratory failure with hypoxia; N17.0 Acute kidney failure with tubular necrosis; J96.02 Acute respiratory failure with hypercapnia; J18.9 Pneumonia, unspecified organism; I11.0 Hypertensive heart disease with heart failure; J44.0 Chronic obstructive pulmonary disease with (acute) lower respiratory infection; R65.20 Severe sepsis without septic shock; J44.1 Chronic obstructive pulmonary disease with (acute) exacerbation; Z79.84 Long term (current) use of oral hypoglycemic drugs; Z79.899 Other long term (current) drug therapy; Z79.82 Long term (current) use of aspirin; G89.29 Other chronic pain; G47.33 Obstructive sleep apnea (adult) (pediatric); E44.0 Moderate protein-calorie malnutrition; E78.5 Hyperlipidemia, unspecified; E66.9 Obesity, unspecified; E11.65 Type 2 diabetes mellitus with hyperglycemia; E11.22 Type 2 diabetes mellitus with diabetic chronic kidney disease; I13.0 Hypertensive heart and chronic kidney disease with heart failure and stage 1 through stage 4 chronic kidney disease, or unspecified chronic kidney disease; N18.1 Chronic kidney disease, stage 1; F17.200 Nicotine dependence, unspecified, uncomplicated; Z68.35 Body mass index [BMI] 35.0-35.9, adult; N13.9 Obstructive and reflux uropathy, unspecified; I35.1 Nonrheumatic aortic (valve) insufficiency; I70.0 Atherosclerosis of aorta; N40.0 Benign prostatic hyperplasia without lower urinary tract symptoms; Z87.442 Personal history of urinary calculi; E87.2 Acidosis
CPT/HCPCS: 31720; 36415; 36569; 36600; 71045-TC; 75574; 76770-TC; 80048-TC; 80053-TC; 80061-TC; 80076-TC; 81000-TC; 82550-TC; 82553-TC; 82570-TC; 82803-TC; 82962-TC; 83605-TC; 83735-TC; 83880; 83970; 84100-TC; 84132-TC; 84155; 84155-TC; 84165; 84300-TC; 84439-TC; 84443-TC; 84484-TC; 85025-TC; 85730-TC; 87040-TC; 87070-TC; 87081-TC; 87086-TC; 93307-TC; 94002-TC; 94640-TC; 94799-TC; 99082-TC; A4216; A4606; C9113; G0480; J0171; J0330; J0696; J1644; J1650; J1815; J1940; J1956; J2250; J2405; J3480; J3490; J7030; J7050; Q9967

== ENCOUNTER 2017-06-03 09:53 | Emergency (ER) | payer MEDICAID ==
[~2017-06-03] VITALS: Ht 177.8 cm; Wt 104.9 kg
[~2017-06-03 09:53] MED LIST changes: +AMLO10TA6 PO; -AMLO1CAP2 PO; +METO25TA20 PO; +VALS80TA2 PO
--- NOTE | 2017-06-03 09:55 | NUR ---
AAOX3, [id number] FROM HOME FOR SOB,ARRIVED ON CPAP, HYPERTENSIVE IN THE FIELD 227/94 2 ROUNDS OF NITRO 1.2 GIVEN BY EMS. RESP IS LABORED. PLACED ON THE MONITOR. DR MALIN AT FOR EVAL.
[2017-06-03] MEDS ORDERED: ALBUTEROL FS 2.5 MG/3 ML VIAL.NEB CONTNEB ONE (10:00)
[2017-06-03] MEDS ORDERED: NITROGLYCERIN 0.4 MG/TAB BOTTLE SL ONE (10:00)
[2017-06-03] MEDS ORDERED: ALBUTEROL FS 2.5 MG/3 ML VIAL.NEB ONE (10:04)
[2017-06-03 10:09] LABS: BASOPHILS % (AUTO) 0.3 % (0.0-2.0); EOSINOPHILS % (AUTO) 2.7 % (0.0-6.0); HEMATOCRIT 44 % (39-51); HEMOGLOBIN 14.7 g/dL (13.5-17.5); LYMPHOCYTES # (AUTO) 1.6 /CMM (0.8-4.8); LYMPHOCYTES % (AUTO) 28.7 % (20.0-44.0); MEAN CORPUSCULAR HGB CONC 34 g/dl (31.0-36.0); MEAN CORPUSCULAR VOLUME 88 fL (80-96); MONOCYTES # (AUTO) 0.3 /CMM (0.1-1.30); MONOCYTES % (AUTO) 5.6 % (2.0-12.0); NEUTROPHILS # (AUTO) 3.5 /CMM (1.8-8.9); NEUTROPHILS % (AUTO) 62.7 % (43.0-81.0); PLATELET COUNT (AUTO) 133 /CMM (150-450); RDW COEFFICIENT OF VARIATION 13.2 (11.5-15.0); RED BLOOD CELL COUNT(AUTO) 4.95 MIL/uL (4.5-6.0); WHITE BLOOD COUNT (AUTO) 5.6 K/uL (4.3-11.0)
[2017-06-03 10:19] LABS: CALCIUM, SERUM 9.1 mg/dL (8.5-10.1); CARBON DIOXIDE 27 mmol/L (21-32); CHLORIDE 103 mmol/L (98-107); CREATININE 0.9 mg/dL (0.6-1.3); GLUCOSE 275 mg/dL (74-106); POTASSIUM 4.4 mmol/L (3.5-5.1); SODIUM SERUM 137 mmol/L (136-145); UREA NITROGEN, BLOOD 22 mg/dL (7-18)
[2017-06-03] MEDS ORDERED: NITROGLYCERIN PACKET 1 GM PACKET ONE (10:22)
[2017-06-03 10:24] LABS: INR 0.95 (0.85-1.15)
[2017-06-03 10:28] LABS: TROPONIN I < 0.017 ng/mL (0.00-0.056)
--- NOTE | 2017-06-03 10:35 | NUR ---
Patient is resting comfortably in bed with eyes closed. Easily aroused. VSS
[2017-06-03] MEDS ORDERED: NITROGLYCERIN 0.4 MG/TAB BOTTLE ONE (10:38)
[2017-06-03] MEDS ORDERED: FUROSEMIDE 40 MG/4 ML VIAL ONE (10:47)
[2017-06-03] MEDS ORDERED: FUROSEMIDE 20 MG/2 ML VIAL IV ONE (11:00)
--- NOTE | 2017-06-03 12:08 | NUR ---
IV removed. Catheter intact and site benign. Pressure and 4x4 applied to site. No bleeding noted.Patient discharged to home in stable condition. Written and verbal after care instructions given. Patient verbalizes understanding of instruction.
[2017-06-03 12:14] VITALS: BP 148/73
== END 2017-06-03 12:16 | disposition home or self-care (01) ==
LOC: ER 09:53
DX: J98.01 Acute bronchospasm (principal); R06.02 Shortness of breath; I10 Essential (primary) hypertension; E11.9 Type 2 diabetes mellitus without complications; I11.0 Hypertensive heart disease with heart failure; I50.9 Heart failure, unspecified; F17.200 Nicotine dependence, unspecified, uncomplicated; R09.2 Respiratory arrest; Z79.4 Long term (current) use of insulin; Z79.82 Long term (current) use of aspirin; Z86.74 Personal history of sudden cardiac arrest
CPT/HCPCS: 36415; 71045-TC; 80048-TC; 83880; 84484-TC; 85025-TC; 85730-TC; A4606; J1940; Z7610

== ENCOUNTER 2017-07-02 22:16 | Inpatient (IN) | payer MEDICAID ==
[~2017-07-02] VITALS: Ht 175.3 cm; Wt 98.9 kg
--- NOTE | 2017-07-02 22:25 | NUR ---
PT BBRA FROM HOME C/O SOB X 1 HOUR TONGUE AND QUARTER STITCHER S/P DRINKING WITH FRIENDS AND GETING AGITATED. PT IS AAOX4. SKIN DRY AND WARM TO TOUCH. PT SPO2 97% ON RA. BREATH SOUNDS AUSCULTATED BILATERALLY. RESP EVEN AND UNLABORED. NO S/S OF DISTRESS NOTED AT THIS TIME. PT DENIES HAVING ANY PAIN. -N/V/D. -COUGH. -DYSPNEA. PT STATES "I DIDNT WANT TO COME BUT MY FAMILY CALLED THE PARAMEDICS". PT NOTED TO BE TACHYCARDIC AT 120BPM. MILD SWELLING NOTED OF THE LEFT LOWER EXTREMITY. PT SAFETY AND COMOFRT MEASURES IN PLACE. PT PLACED ON MONITOR AND POX. MD BEDSIDE FOR EVAL.
[2017-07-02] MEDS ORDERED: IV NS 0.9% 1,000 ML BAG IV ONE (22:30)
--- NOTE | 2017-07-02 22:34 | NUR ---
EMT BEDSIDE FOR EKG
--- NOTE | 2017-07-02 22:35 | NUR ---
BLOOD SPECIMEN PICKED UP BY PREP COOK CAR
[2017-07-02 22:47] LABS: BASOPHILS % (AUTO) 0.6 % (0.0-2.0); EOSINOPHILS % (AUTO) 3.5 % (0.0-6.0); HEMATOCRIT 41 % (39-51); LYMPHOCYTES % (AUTO) 33.3 % (20.0-44.0); MEAN CORPUSCULAR HGB CONC 34 g/dl (31.0-36.0); MEAN CORPUSCULAR VOLUME 88 fL (80-96); MONOCYTES # (AUTO) 0.4 /CMM (0.1-1.30); MONOCYTES % (AUTO) 6.5 % (2.0-12.0); NEUTROPHILS # (AUTO) 3.3 /CMM (1.8-8.9); NEUTROPHILS % (AUTO) 56.1 % (43.0-81.0); PLATELET COUNT (AUTO) 136 /CMM (150-450); RED BLOOD CELL COUNT(AUTO) 4.67 MIL/uL (4.5-6.0); WHITE BLOOD COUNT (AUTO) 5.9 K/uL (4.3-11.0)
[2017-07-02 23:00] LABS: CALCIUM, SERUM 8.8 mg/dL (8.5-10.1); CARBON DIOXIDE 24 mmol/L (21-32); CHLORIDE 99 mmol/L (98-107); CREATININE 1.2 mg/dL (0.6-1.3); POTASSIUM 4.3 mmol/L (3.5-5.1); SODIUM SERUM 137 mmol/L (136-145); UREA NITROGEN, BLOOD 28 mg/dL (7-18)
[2017-07-02 23:02] LABS: GLUCOSE 395 mg/dL (74-106)
[2017-07-02 23:05] LABS: D-DIMER 1.56 mg/L(FEU (0.17-0.50); INR 0.95 (0.87-1.13); TROPONIN I < 0.017 ng/mL (0.00-0.056)
[2017-07-02] MEDS ORDERED: INSULIN REGULAR, HUMAN 100 UNIT/ML 10 ML VIAL ONE (23:18)
--- NOTE | 2017-07-02 23:20 | NUR ---
regular insulin 10 units iv verified with Cristopher MAS
[2017-07-02] MEDS ORDERED: INSULIN REGULAR, HUMAN 100 UNIT/ML 10 ML VIAL IV ONE (23:30)
[2017-07-02] MEDS ORDERED: IV NS 0.9% 250 ML IV ONE (23:38)
[2017-07-02] MEDS ORDERED: CT SWABBABLE VALVE TRANS SET 1 EA INFUS.SET MC ONE (23:38)
[2017-07-02] MEDS ORDERED: IOHEXOL-350 100 ML VIAL IV ONE (23:38)
--- NOTE | 2017-07-02 23:38 | NUR ---
GRISTMILLER BEDSIDE SPEAKING WITH PT REGARDING CTA.
--- NOTE | 2017-07-02 23:40 | NUR ---
PT TO CT
[2017-07-03] MEDS ORDERED: ASPIRIN 325 MG TABLET PO ONE
[2017-07-03] MEDS ORDERED: ASPIRIN 325 MG TABLET ONE (00:20)
--- NOTE | 2017-07-03 01:32 | NUR ---
REPORT GIVEN TO CARLOS CRANDALL FOR MORENITA.
[2017-07-03] MEDS ORDERED: DEXTROSE 50%-WATER 50 ML DISP.SYRIN IV PRN (02:00)
[2017-07-03] MEDS ORDERED: NITROGLYCERIN 0.4 MG/TAB BOTTLE SL PRN (02:00)
[2017-07-03] MEDS ORDERED: ACETAMINOPHEN 325 MG TABLET PO PRN (02:00)
[2017-07-03] MEDS ORDERED: ONDANSETRON HCL/PF 4 MG/2 ML VIAL IVP PRN (02:00)
[2017-07-03] MEDS ORDERED: CLONIDINE HCL 0.2 MG TABLET PO PRN (02:00)
[2017-07-03 02:03] LABS: ALBUMIN 2.7 g/dL (3.4-5.0); BILIRUBIN,DIRECT 0.1 mg/dL (0.0-0.2); BILIRUBIN,TOTAL 0.3 mg/dL (0.2-1.0); TOTAL PROTEIN, SERUM 7.8 g/dL (6.4-8.2)
[2017-07-03 02:15] VITALS: BP 172/77
[2017-07-03] MEDS: HYDROCODONE/APAP 5/325MG 1 EACH TABLET PO PRN (02:50)
--- NOTE | 2017-07-03 03:00 | NUR ---
POSTAL WORKER NOTE: RECEIVE PATIENT FROM ER, NO ACUTE DISTRESS NOTED. BREATHING EVEN AND UNLABORED, NO SOB NOTED. IV TO RAC IN PLACE. PATIENT COMPLAINS OF BACK PAIN /, NORCO 5/325MG 1 TAB ORAL GIVEN PER MD ORDER. ORIENTED PATIENT TO ROOM AND USE OF CALL LIGHT. BED LOCKED AND IN LOWEST POSITION, CALL LIGHT IN REACH WILL CONTINUE TO MONITOR.
[2017-07-03 04:00] VITALS: BP 168/98
[2017-07-03] MEDS ORDERED: CLONIDINE HCL 0.1 MG TABLET PO PRN (04:13)
--- NOTE | 2017-07-03 04:30 | NUR ---
DIESEL PLANT OPERATOR NOTE: PATIENT BLOOD PRESSURE 172/77, HR 112. CLONIDINE 0.2 MG ORAL GIVEN PER MD ORDER. WILL CONTINUE TO MONITOR.
--- NOTE | 2017-07-03 06:25 | NUR ---
MS RN NOTE: PATIENT RESTING IN BED, NO ACUTE DISTRESS NOTED. BREATHING EVEN AND UNLABORED, NO SOB NOTED. IV TO RAC IN PLACE. TELE READING SINUS TACHY 100-120'S. PATIENT BLOOD SUGAR LEVEL 169MG/DL, NO S/S OF HYPER/HYPOGLYCEMIA NOTED. BED LOCKED AND IN LOWEST POSITION, CALL LIGHT IN REACH. WILL ENDORSE TO DAY NURSE TO CONTINUE WITH PLAN OF CARE.
[2017-07-03] MEDS: BLOOD SUGAR DIAGNOSTIC 1 EACH STRIP IN SCH ×4 (06:34→21:04)
[2017-07-03] MEDS: INSULIN REGULAR, HUMAN 100 UNIT/ML 3 ML VIAL SQ PRN ×4 (06:35→21:02)
[2017-07-03 07:18] LABS: BASOPHILS % (AUTO) 0.5 % (0.0-2.0); HEMATOCRIT 39 % (39-51); HEMOGLOBIN 13.3 g/dL (13.5-17.5); LYMPHOCYTES # (AUTO) 2.2 /CMM (0.8-4.8); LYMPHOCYTES % (AUTO) 30.9 % (20.0-44.0); MEAN CORPUSCULAR HGB CONC 34 g/dl (31.0-36.0); MEAN CORPUSCULAR VOLUME 88 fL (80-96); MONOCYTES # (AUTO) 0.6 /CMM (0.1-1.30); MONOCYTES % (AUTO) 8.9 % (2.0-12.0); NEUTROPHILS % (AUTO) 55.7 % (43.0-81.0); PLATELET COUNT (AUTO) 134 /CMM (150-450); RDW COEFFICIENT OF VARIATION 14.1 (11.5-15.0); RED BLOOD CELL COUNT(AUTO) 4.39 MIL/uL (4.5-6.0); WHITE BLOOD COUNT (AUTO) 7.1 K/uL (4.3-11.0)
[2017-07-03 07:28] LABS: ALBUMIN 2.5 g/dL (3.4-5.0); BILIRUBIN,TOTAL 0.6 mg/dL (0.2-1.0); CALCIUM, SERUM 8.3 mg/dL (8.5-10.1); MAGNESIUM 1.9 mg/dL (1.8-2.4); PHOSPHORUS 3.9 mg/dL (2.5-4.9); POTASSIUM 4.6 mmol/L (3.5-5.1); TOTAL PROTEIN, SERUM 7.2 g/dL (6.4-8.2)
--- NOTE | 2017-07-03 07:39 | NUR ---
MS RN OPENING NOTES RECEIVED PATIENT IN STABLE CONDITION. IN NO APPARENT DISTRESS. BEDSIDE RAILS ARE UPX2. BED IS LOCKED AND LOWERED. CALL LIGHT IS WITHIN REACH. IV LINE IS INTACT AND PATENT. WILL CONTINUE TO MONITOR.
[2017-07-03 08:00] VITALS: BP 159/81
[2017-07-03] MEDS: CILOSTAZOL 100 MG TABLET PO SCH ×2 (08:14→16:43)
[2017-07-03] MEDS: PANTOPRAZOLE 40 MG TABLET.DR PO SCH (08:14)
[2017-07-03] MEDS: ASPIRIN 81 MG TAB.CHEW PO SCH (08:14)
[2017-07-03] MEDS: INSULIN GLARGINE, 100 UNIT/ML CARTRIDGE SQ SCH ×2 (08:26→21:03)
--- NOTE | 2017-07-03 08:28 | NUR ---
PATIENT REFUSED 75 UNITS OF LANTUS INSULIN. PATIENT PREFERRED TO ONLY TAKE 50. BLOOD SUGAR WAS 184. EXPLAINED TO THE PATIENT THE TREATMENT PLAN. WILL INFORM DOCTOR IF NECESSARY TO ADJUST MEDICATION.
[2017-07-03] MEDS ORDERED: METOPROLOL SUCCINATE 50 MG TAB.SR.24H PO SCH (09:00)
[2017-07-03] MEDS ORDERED: AMLODIPINE BESYLATE 10 MG TABLET PO SCH (09:00)
[2017-07-03] MEDS ORDERED: VALSARTAN 80 MG TABLET PO SCH (09:00)
[2017-07-03] MEDS ORDERED: DILTIAZEM HCL CD 180 MG PO SCH (09:30)
--- NOTE | 2017-07-03 11:43 | NUR ---
BLOOD SUGAR WAS 189. 3 UNITS OF REGULAR INSULIN GIVEN.
[2017-07-03 12:00] VITALS: BP 145/76
[2017-07-03 16:00] VITALS: BP 144/71
[2017-07-03] MEDS ORDERED: hydrALAZINE HCL 25 MG TABLET PO PRN (18:00)
--- NOTE | 2017-07-03 18:26 | NUR ---
NOTIFIED PHARMACY TO VERIFY 1800 MEDICATIONS. PHARMACY WILL VERIFY.
[2017-07-03] MEDS: FUROSEMIDE 40 MG/4 ML VIAL IV SCH (18:42)
[2017-07-03] MEDS: VALSARTAN 80 MG TABLET PO SCH (18:44)
--- NOTE | 2017-07-03 18:52 | NUR ---
MS RN CLOSING NOTES PATIENT IS STABLE. IN NO APPARENT DISTRESS. BEDSIDE RAILS ARE UPX2. BED IS LOCKED AND LOWERED. CALL LIGHT IS WITHIN REACH. ALL NEEDS WERE MET. IV IS INTACT AND PATENT. WILL ENDORSE CARE TO GENERAL FARM HAND NURSE FOR MORENITA.
--- NOTE | 2017-07-03 19:50 | NUR ---
SHANK SKINNER OPENING NOTES RECEIVED PATIENT AWAKE, ALERT AND VERBALLY RESPONSIVE, RESPIRATIONS EVEN AND UNLABORED , DENIES ANY PAIN OR DISCOMFORT, DENIES CHEST PAIN, ON RAILWAY SIGNAL OPERATOR SR 87. IV SITE TO RIGHT AC 18 GAUGE INTACT AND PATENT, PATIENT AMBULATORY WITH BRP, STEADY GAIT, ORIENTED TO STAFF, SAFETY MEASURES IN PLACE CALL LIGHT KEPT WITHIN REACH, WILL CONTINUE TO MONITOR
[2017-07-03 20:00] VITALS: BP 144/72
[2017-07-03] MEDS: CARVEDILOL 6.25 MG TABLET PO SCH (20:42)
[2017-07-03] MEDS ORDERED: ATORVASTATIN 40 MG TABLET PO SCH (22:00)
[2017-07-04] MEDS: HYDROCODONE/APAP 5/325MG 1 EACH TABLET PO PRN (00:31)
[2017-07-04 04:00] VITALS: BP 140/70
[2017-07-04] MEDS: BLOOD SUGAR DIAGNOSTIC 1 EACH STRIP IN SCH ×2 (06:24→11:43)
[2017-07-04] MEDS: INSULIN REGULAR, HUMAN 100 UNIT/ML 3 ML VIAL SQ PRN ×2 (06:28→11:46)
--- NOTE | 2017-07-04 06:48 | NUR ---
SPECIAL EDUCATION EDUCATIONAL ASSISTANT CLOSING NOTES PATIENT AWAKE, ALERT AND VERBALLY RESPONSIVE, RESPIRATIONS EVEN AND UNLABORED , DENIES ANY PAIN OR DISCOMFORT, DENIES CHEST PAIN, ON PACKAGER HEAD SR 83. IV SITE TO RIGHT AC 18 GAUGE INTACT AND PATENT, PATIENT AMBULATORY WITH BRP, STEADY GAIT,SAFETY MEASURES IN PLACE CALL LIGHT KEPT WITHIN REACH, WILL CONTINUE TO MONITOR AND ENDORSE TO NEXT SHIFT.
--- NOTE | 2017-07-04 07:45 | NUR ---
Tele/RN - Assessment Patient in bed awake, A/O x 4, denies chest pain, no c/o shortness of breath, tolerating room air. Tele reads SR. Saline lock on the RAC is patent, intact, with no s/s of infiltration. Skin is intact, ambulatory with steady gait and independent with ADL's. All needs attended and met. Fall precautions maintained. Call light in reach at all times. Patient prefers to be discharged today or he'll leave AMA, will notify Md. Will continue with current plan of care.
[2017-07-04 08:00] VITALS: BP 154/73
[2017-07-04] MEDS: PANTOPRAZOLE 40 MG TABLET.DR PO SCH (08:05)
[2017-07-04] MEDS: FUROSEMIDE 40 MG/4 ML VIAL IV SCH (08:09)
[2017-07-04] MEDS: ASPIRIN 81 MG TAB.CHEW PO SCH (08:10)
[2017-07-04] MEDS: CILOSTAZOL 100 MG TABLET PO SCH (08:11)
[2017-07-04] MEDS: INSULIN GLARGINE, 100 UNIT/ML CARTRIDGE SQ SCH (08:11)
[2017-07-04] MEDS: CARVEDILOL 6.25 MG TABLET PO SCH (08:12)
[2017-07-04] MEDS: VALSARTAN 80 MG TABLET PO SCH (08:12)
[2017-07-04 08:21] LABS: BASOPHILS # (AUTO) 0.1 /CMM (0.0-0.2); BASOPHILS % (AUTO) 0.7 % (0.0-2.0); EOSINOPHILS % (AUTO) 5.2 % (0.0-6.0); HEMATOCRIT 41 % (39-51); HEMOGLOBIN 14.1 g/dL (13.5-17.5); LYMPHOCYTES # (AUTO) 2.2 /CMM (0.8-4.8); MEAN CORPUSCULAR HGB CONC 34 g/dl (31.0-36.0); MEAN CORPUSCULAR VOLUME 88 fL (80-96); MONOCYTES # (AUTO) 0.6 /CMM (0.1-1.30); MONOCYTES % (AUTO) 7.4 % (2.0-12.0); NEUTROPHILS # (AUTO) 4.1 /CMM (1.8-8.9); NEUTROPHILS % (AUTO) 57.7 % (43.0-81.0); PLATELET COUNT (AUTO) 151 /CMM (150-450); RDW COEFFICIENT OF VARIATION 13.7 (11.5-15.0); RED BLOOD CELL COUNT(AUTO) 4.65 MIL/uL (4.5-6.0); WHITE BLOOD COUNT (AUTO) 7.4 K/uL (4.3-11.0)
[2017-07-04 08:35] LABS: CALCIUM, SERUM 8.7 mg/dL (8.5-10.1); CREATININE 1.1 mg/dL (0.6-1.3); POTASSIUM 4.6 mmol/L (3.5-5.1)
[2017-07-04] MEDS ORDERED: AMLODIPINE BESYLATE 10 MG TABLET PO SCH (09:00)
[2017-07-04] MEDS ORDERED: VALS80TA2 PO (10:58)
[2017-07-04] MEDS ORDERED: VALS160T2 PO (11:56)
[2017-07-04 12:00] VITALS: BP 147/69
--- NOTE | 2017-07-04 14:55 | NUR ---
Tele/RN - Discharge Patient discharged home in stable condition. Reviewed discharge instructions with patient and he verbalized full understanding of all teachings. Patient made aware that he needs to f/u with his PCP or hand kiss setter, and return to ER for chest pain or shortness of breath. Patient stated he has an appointment with his PCP tomorrow. All belongings with patient and he denies any missing items. VSS, denies chest pain, no c/o shortness of breath, blood sugar controlled. Heplock removed on the RAC with catheter tip intact, no redness and no swelling noted at the site. Patient refused photos to be taken, skin is intact. Discharge papers signed and copy was given per protocol. Accompanied to the lobby via wheelchair and transported by private car by .
== END 2017-07-04 15:00 | disposition home or self-care (01) | DRG 190 ==
LOC: ER 22:18 → TELE 07-03 01:21
PROVIDERS: ADMIT Internal Medicine; ATTEND Internal Medicine
DX: I21.A1 Myocardial infarction type 2 (principal); N17.0 Acute kidney failure with tubular necrosis; I50.33 Acute on chronic diastolic (congestive) heart failure; E44.0 Moderate protein-calorie malnutrition; I24.9 Acute ischemic heart disease, unspecified; I11.0 Hypertensive heart disease with heart failure; E11.9 Type 2 diabetes mellitus without complications; Z86.74 Personal history of sudden cardiac arrest; Z87.01 Personal history of pneumonia (recurrent); Z79.899 Other long term (current) drug therapy; Z79.84 Long term (current) use of oral hypoglycemic drugs; Z79.82 Long term (current) use of aspirin; J44.9 Chronic obstructive pulmonary disease, unspecified; Z79.4 Long term (current) use of insulin; F17.200 Nicotine dependence, unspecified, uncomplicated; Z68.34 Body mass index [BMI] 34.0-34.9, adult; I70.0 Atherosclerosis of aorta; K74.60 Unspecified cirrhosis of liver; I25.2 Old myocardial infarction; E66.9 Obesity, unspecified; B19.20 Unspecified viral hepatitis C without hepatic coma; E11.65 Type 2 diabetes mellitus with hyperglycemia; G47.33 Obstructive sleep apnea (adult) (pediatric); I25.10 Atherosclerotic heart disease of native coronary artery without angina pectoris; I35.1 Nonrheumatic aortic (valve) insufficiency; E86.1 Hypovolemia
CPT/HCPCS: 36415; 71045-TC; 76705-TC; 80048-TC; 80053-TC; 80076-TC; 82140-TC; 82962-TC; 83735-TC; 83880; 84100-TC; 84484-TC; 85025-TC; 85378-TC; 85730-TC; 87081-TC; A4606; J1815; J1940; J7030; J7050; Q9967; Z7610

== ENCOUNTER 2017-08-09 14:21 | Emergency (ER) | payer MEDICAID ==
[~2017-08-09] VITALS: Ht 172.7 cm; Wt 117.9 kg
--- NOTE | 2017-08-09 14:21 | NUR ---
PT TO ED ROOM 08. [id number] FROM HOME: CPR. DOWN TIME 1350. BS IN FIELD BY EMS 306. PEA ON ARRIVAL. CONTINUE CPR IN ED.
[2017-08-09] MEDS ORDERED: EPINEPHRINE (1:10,000) SYRINGE 1 MG/10 ML DISP.SYRIN IVP ONE (14:26)
[2017-08-09] MEDS ORDERED: SODIUM BICARBONATE SYR 50 MEQ/50 ML DISP.SYRIN IV ONE (14:26)
--- NOTE | 2017-08-09 14:40 | NUR ---
CPR RECORDS 1410: BBRA; PEA; DOWN TIME 1350 WITNESSED. PEA. 1412: BICARB R AC G 18 IVP. PEA. 1413: ATTEMPTED INTUBATION BY DR MARTELL, UNSUCCESSFUL. 1414: EPI x 1 R AC G 18 IVP. PEA. 1415: ATTEMPTED INTUBATION BY DR MARTELL, UNSUCCESSFUL. 1419: EPI x 1 R AC G 18 IVP. PEA 1420: ATTEMPTED INTUBATION BY DR MARTELL, UNSUCCESSFUL. 1430: PEA. PRONOUNCED BY Mitch SANTIAGO
--- NOTE | 2017-08-09 14:51 | NUR ---
CALLED (PCP), HE HAS SEEN PT WITHIN THE LAST 6 MONTHS BUT THE PT DOES NOT FOLLOW UP WITH HIM SO HE WILL NOT SIGN CERTIFICATE
--- NOTE | 2017-08-09 15:00 | NUR ---
SPOKE TO JOSE DAVID FROM [facility], NOTIFIED THAT PMD SIM[facility] WILL NOT SIGN CERTIFICATE. PER JOSE DAVID, "AYANAOSSLILIA WILL STILL NEED TO SIGN OR HE WILL BE REPORTED TO THE MEDICAL BOARD."
[2017-08-09 17:03] VITALS: BP 0/0
--- NOTE | 2017-08-09 17:18 | NUR ---
CALLED [facility]'S OFFICE AND RELAYED THE MESSAGE FOR [facility] TO CALL [facility]. LEFT MESSAGE WITH MATERIAL HANDLER AND SHE WILL FORWARD.
== END 2017-08-09 17:03 | disposition expired ==
LOC: ER 14:25
DX: I46.9 Cardiac arrest, cause unspecified (principal); E11.9 Type 2 diabetes mellitus without complications; I11.0 Hypertensive heart disease with heart failure; F10.10 Alcohol abuse, uncomplicated; G89.29 Other chronic pain; F17.200 Nicotine dependence, unspecified, uncomplicated; I50.9 Heart failure, unspecified; Z79.4 Long term (current) use of insulin; Z79.82 Long term (current) use of aspirin
CPT/HCPCS: J0171; J3490